=== PATIENT | female | born 1930 | race Caucasian/White ===

== ENCOUNTER 2019-01-20 07:57 | Outpatient (CLI) | payer MEDICARE ==
[2019-01-20 11:07] LABS: BASOPHILS # (AUTO) 0.1 10^3/uL (0.0-0.1); BASOPHILS % (AUTO) 0.9 %; EOSINOPHILS # (AUTO) 0.1 10^3/uL (0.0-0.7); EOSINOPHILS % (AUTO) 1.8 %; LYMPHOCYTES # (AUTO) 1.7 10^3/uL (1.5-3.5); LYMPHOCYTES % (AUTO) 26.1 %; MEAN CORPUSCULAR HEMOGLOBIN 32.9 pg (27.0-31.0); MEAN CORPUSCULAR HGB CONC 33.4 g/dL (32.0-36.0); MEAN CORPUSCULAR VOLUME 98.5 fL (81.0-99.0); MEAN PLATELET VOLUME 10.9 fL (7.9-10.8); MONOCYTES # (AUTO) 0.6 10^3/uL (0.0-1.0); MONOCYTES % (AUTO) 9.8 %; NEUTROPHILS # (AUTO) 3.9 10^3/uL (1.5-6.6); NEUTROPHILS % (AUTO) 61.4 %; PLT - PLATELET COUNT 164 10^3/uL (130-450); RED BLOOD COUNT 3.96 10^6/uL (4.20-5.40); RED CELL DISTRIBUTION WIDTH 14.7 % (12.0-15.0); WHITE BLOOD COUNT 6.3 x10^3/uL (4.8-10.8)
[2019-01-20 11:16] LABS: ALBUMIN 4.3 g/dL (3.2-5.5); ALBUMIN/GLOBULIN RATIO 1.2 (1.0-2.2); ALKALINE PHOSPHATASE 67 IU/L (42-121); ALT ALANINE AMINOTRANSFERASE 18 IU/L (10-60); AST ASPARTATE AMINOTRANSFERASE 31 IU/L (10-42); BILIRUBIN,TOTAL 1.2 mg/dL (0.2-1.0); BUN - BLOOD UREA NITROGEN 26 mg/dL (6-20); CALCIUM 10.4 mg/dL (8.5-10.3); CARBON DIOXIDE - CO2 26 mmol/L (21-32); CHLORIDE 102 mmol/L (101-111); CHOL/HDL RATIO 2.5 (<4.4); CHOLESTEROL 146 mg/dL; GFR - MDRD 53 (>89); GLUCOSE 95 mg/dL (70-100); HDL CHOLESTEROL 58 mg/dL; LDL CHOLESTEROL,CALCULATED 75 mg/dL; LDL/HDL RATIO 1.3 (<4.4); SODIUM 139 mmol/L (135-145); TOTAL PROTEIN 7.8 g/dL (6.7-8.2); VLDL CHOLESTEROL 13 mg/dL
[2019-01-20 11:25] LABS: HB2 TOTAL 13.6 g/dL; HEMOGLOBIN A1C 0.5 g/dL; HEMOGLOBIN A1C % 5.5 % (4.6-6.2)
== END 2019-01-20 07:58 | disposition home or self-care (01) ==
LOC: LAB.F 07:57
PROVIDERS: ATTEND Registered Nurse
DX: E78.5 Hyperlipidemia, unspecified (principal); I10 Essential (primary) hypertension; R60.0 Localized edema
CPT/HCPCS: 36415; 80053; 80061; 82043; 83036; 83721; 83880; 84443; 85025

== ENCOUNTER 2021-09-09 11:57 | Outpatient (CLI) | payer MEDICARE ==
--- NOTE | 2021-09-09 14:32 | XRAY Report ---
PROCEDURE: Cervical Spine Complete INDICATIONS: HYPERPARATHYROIDISM TECHNIQUE: 5 view(s) of the cervical spine were acquired. COMPARISON: None. FINDINGS: Bones: No fractures or dislocations to the C6 level. The lateral masses of C1 appear intact on the odontoid view. No suspicious bony lesions. Multilevel disc space narrowing and endplate osteophyte formation as well as facet hypertrophy throughout the mid and lower cervical spine. Moderate foramina l stenoses bilaterally at C3-C4, C4-C5, and C5-C6. Soft tissues: No prevertebral soft tissue swelling. IMPRESSION: Multilevel degenerative disc and facet disease. No acute fracture. No osseous lesion. If symptoms and/or clinical suspicion for pathology continue, further assessment with repeat plain film s, or advanced imaging (e.g., CT, MRI, or bone scan) is recommended for further assessment. Reviewed by: Fely Cole MD on 09/09/2021 2:31 PM PST Approved by: Fely Cole MD on 09/09/2021 2:31 PM PST Station ID: [id number]
--- NOTE | 2021-09-09 15:06 | XRAY Report ---
PROCEDURE: Lumbar Spine 2 View INDICATIONS: HYPERPARATHYROIDISM TECHNIQUE: 3 views of the lumbar spine were acquired. COMPARISON: None. FINDINGS: L-SPINE: 5 nonrib-bearing vertebrae. Diffuse osteopenia. Minimal retrolisthesis at L1-2. Grade 1 ante rolisthesis at L5-S1. The vertebral body heights are maintained. Mild disc height loss with facet ar throsis at L5-S1. The sacroiliac joints appear patent. SOFT TISSUES: No focal abnormality. IMPRESSION: 1.No acute osseous abnormality of the lumbar spine. Reviewed by: Mich Cm MD on 09/09/2021 3:04 PM [facility] Approved by: Mich Cm MD on 09/09/2021 3:04 PM [facility] Station ID: [id number]
--- NOTE | 2021-09-09 15:10 | XRAY Report ---
PROCEDURE: Thoracic Spine 2 View INDICATIONS: HYPERPARATHYROIDISM TECHNIQUE : 2 views of the thoracic spine were acquired. COMPARISON: None. FINDINGS: THORACIC SPINE: Diffuse osteopenia. No acute, displaced fracture or retropulsion. The vertebral body heights and intervertebral disc spaces are maintained. SOFT TISSUES: No prevertebral soft tissue thickening. IMPRESSION: 1. No acute osseous abnormality of the thoracic spine. Reviewed by: Mich Cm MD on 09/09/2021 3:08 PM [facility] Approved by: Mich Cm MD on 09/09/2021 3:08 PM [facility] Station ID: [id number]
== END 2021-09-09 11:58 | disposition home or self-care (01) ==
LOC: DI.S 11:57
PROVIDERS: ATTEND Nurse Practitioner Family
DX: E21.3 Hyperparathyroidism, unspecified (principal); M47.812 Spondylosis without myelopathy or radiculopathy, cervical region; M50.320 Other cervical disc degeneration, mid-cervical region, unspecified level; M48.02 Spinal stenosis, cervical region

== ENCOUNTER 2021-09-12 13:51 | Outpatient (CLI) | payer MEDICARE ==
--- NOTE | 2021-09-12 16:48 | DEXA Report ---
PROCEDURE: Dexa Spine and/or Hip INDICATIONS: OSTEOPOROSIS TECHNIQUE: Dual energy x-ray absorptiometry (DXA) was performed on a [employer] S[employer]A System. Regions measur ed are the AP Spine, femoral neck, and if needed forearm. COMPARISON: None. FINDINGS: Lumbar Spine: Bone Mineral Density 0.96 g/cm/cm,T score -1.8, osteopenia Left Hip: Bone Mineral Density 0.54 g/cm/cm,T score -3.7, osteoporosis. Impression: 1. Lumbar spine osteopenia. 2. Left hip osteoporosis. Patients with diagnosis of osteoporosis or osteopenia should have regular bone mineral density assess ment. For those eligible for Medicare, routine testing is allowed once every 2 years. Testing frequ ency can be increased for patients who have rapidly progressing disease or for those who are receivin g medical therapy to restore bone mass. Reviewed by: Fely Cole MD on 09/12/2021 4:47 PM PST Approved by: Fely Cole MD on 09/12/2021 4:47 PM PST Station ID: [id number]
== END 2021-09-12 13:52 | disposition home or self-care (01) ==
LOC: DI 13:51
PROVIDERS: ATTEND Nurse Practitioner Family
DX: M81.0 Age-related osteoporosis without current pathological fracture (principal)

== ENCOUNTER 2022-07-17 12:07 | Outpatient (CLI) | payer MEDICARE ==
[2022-07-17 12:59] LABS: CALCIUM 10.2 mg/dL (8.5-10.3); POTASSIUM 4.2 mmol/L (3.5-5.0)
[2022-07-17] MEDS ORDERED: iohexoL-300 100 ML VIAL ONE (13:58)
[2022-07-17] MEDS ORDERED: iohexoL-300 100 ML VIAL IVP ONE (14:26)
--- NOTE | 2022-07-17 16:59 | CT Report ---
PROCEDURE: ANGIO CHEST W/WO INDICATIONS: PULMONARY EMBOLUS CONTRAST: 80ml Omnipaque 300 TECHNIQUE: After the administration of intravenous contrast, 2 mm axial images were acquired from the pulmonary apices to the posterior costophrenic angles during the arterial phase. In addition, 1 mm lung kernel and 5 mm soft tissue kernel reconstructions were performed. 3-dimensional coronal oblique maximum int ensity projection (MIP) reformats, 8 mm axial MIP, and 5 mm coronal and sagittal MPR reformats were t hen performed through the thorax. For radiation dose reduction, the following was used: automated exp osure control, adjustment of mA and/or kV according to patient size. COMPARISON: None FINDINGS: Image quality: Excellent. Pulmonary arteries: Pulmonary arteries are normal in size, and demonstrate no intraluminal filling d efects to suggest central pulmonary embolism. Lungs and pleura: Mild right pleural effusion, minimal left pleural effusion, mild bibasilar atelecta sis. No focal pulmonary infiltrates. No pulmonary edema. Central and peripheral airways are patent. Mediastinum: Mild cardiomegaly, with minimal pericardial effusion. Moderate to severe coronary artery calcifications. No mediastinal or hilar adenopathy. Thoracic aorta is normal in caliber and enhanc ement. Esophagus is normal in caliber, without hiatal hernia. Bones and chest wall: No suspicious bony lesions. Ribs and thoracic spine appear intact throughout. No axillary or supraclavicular adenopathy. The thyroid is normal in size and there are no incident al findings. Abdomen: Upper abdominal imaging demonstrates the presence of calcified gallstones and gallbladder wa ll edema and thickening. There is reflux of contrast into the hepatic veins which may indicate an alphonse ment of right heart failure. IMPRESSION: 1. No evidence acute pulmonary emboli. 2. Mild to moderate coronary artery calcifications. 3. Mild cardiomegaly, bilateral pleural effusions, and minimal bibasilar atelectasis, and reflux of c ontrast into the hepatic veins. Findings suggest the possibility of mild right and left heart failure . 4. There are gallstones, and there is gallbladder wall thickening and edema. Recommend clinical corre lation to exclude possible acute cholecystitis. CLINICAL RECOMMENDATION STATEMENTS: In patients <35 years with an ITN detected on CT, MRI, or extrathyroidal ultrasound, the Committee re commends further evaluation with dedicated thyroid ultrasound if the nodule is "e1 cm and has no susp icious imaging features, and if the patient has normal life expectancy. In patients "e35 years with an ITN detected on CT, MRI, or extrathyroidal ultrasound, the Committee r ecommends further evaluation with dedicated thyroid ultrasound if the nodule is "e1.5 cm and has no s uspicious imaging features, and if the patient has normal life expectancy. (ACR, 2014) Reviewed by: Juan Pablo Lake MD on 07/17/2022 4:57 PM PST Approved by: Juan Pablo Lake MD on 07/17/2022 4:57 PM PST Station ID: [id number]
== END 2022-07-17 12:08 | disposition home or self-care (01) ==
LOC: LAB 12:07
PROVIDERS: ATTEND Nurse Practitioner Family
DX: Z86.711 Personal history of pulmonary embolism (principal); I25.10 Atherosclerotic heart disease of native coronary artery without angina pectoris; I51.7 Cardiomegaly; J90 Pleural effusion, not elsewhere classified; J98.11 Atelectasis; K80.20 Calculus of gallbladder without cholecystitis without obstruction
CPT/HCPCS: 36415; 71275; 80048; Q9967

== ENCOUNTER 2022-08-30 10:02 | Outpatient (CLI) | payer MEDICARE | END 2022-08-30 10:03 | disposition critical access hospital (66) | LOC: EMS 10:02 | DX: S00.33XA Contusion of nose, initial encounter (principal); S00.83XA Contusion of other part of head, initial encounter; W18.30XA Fall on same level, unspecified, initial encounter; Y92.009 Unspecified place in unspecified non-institutional (private) residence as the place of occurrence of the external cause | CPT/HCPCS: A0425; A0429 ==

== ENCOUNTER 2022-08-30 10:38 | Emergency (ER) | payer MEDICARE ==
[2022-08-30 12:05] LABS: BASOPHILS % (AUTO) 0.4 %; EOSINOPHILS % (AUTO) 0.4 %; HCT - HEMATOCRIT 32.4 % (37.0-47.0); HGB - HEMOGLOBIN 10.1 g/dL (12.0-16.0); LYMPHOCYTES # (AUTO) 1.1 10^3/uL (1.5-3.5); LYMPHOCYTES % (AUTO) 15.1 %; MEAN CORPUSCULAR HGB CONC 31.2 g/dL (32.0-36.0); MEAN CORPUSCULAR VOLUME 102.5 fL (81.0-99.0); MEAN PLATELET VOLUME 11.9 fL (7.9-10.8); MONOCYTES # (AUTO) 0.6 10^3/uL (0.0-1.0); MONOCYTES % (AUTO) 8.5 %; NEUTROPHILS # (AUTO) 5.6 10^3/uL (1.5-6.6); NEUTROPHILS % (AUTO) 75.2 %; PLT - PLATELET COUNT 135 10^3/uL (130-450); RED BLOOD COUNT 3.16 10^6/uL (4.20-5.40); RED CELL DISTRIBUTION WIDTH 14.9 % (12.0-15.0); WHITE BLOOD COUNT 7.4 x10^3/uL (4.8-10.8)
[2022-08-30 12:07] LABS: ALBUMIN 3.7 g/dL (3.2-5.5); ALBUMIN/GLOBULIN RATIO 1.3 (1.0-2.2); BILIRUBIN,TOTAL 1.3 mg/dL (0.2-1.0); CALCIUM 10.2 mg/dL (8.5-10.3); CREATININE 0.9 mg/dL (0.4-1.0); POTASSIUM 4.4 mmol/L (3.5-5.0); TOTAL PROTEIN 6.5 g/dL (6.7-8.2)
[2022-08-30 12:09] LABS: INR 1.4 (0.8-1.2); PT - PROTHROMBIN TIME 15.7 secs (9.9-12.6)
--- NOTE | 2022-08-30 12:38 | CT Report ---
PROCEDURE: HEAD WO INDICATIONS: fall/anticoagulated/head injury TECHNIQUE: Noncontrast 4.5 mm thick angled axial sections acquired from the foramen magnum to the vertex. For r adiation dose reduction, the following was used: automated exposure control, adjustment of mA and/or kV according to patient size. COMPARISON: None. FINDINGS: Image quality: Excellent. CSF spaces: Basal cisterns are patent. No extra-axial fluid collections. Ventricles are normal in size and shape. Brain: No midline shift. No intracranial masses or hemorrhage. No area of hypodensity in a vascula r distribution to suggest acute infarction. There is periventricular hypodensity consistent with bush and vine farmer fruit crops rito microvascular ischemic disease. Age-related parenchymal loss. Skull and face: Calvarium and visu alized facial bones are intact, without suspicious lesions. Sinuses: Coastal thickening at the maxillary sinuses. Mastoids are clear. IMPRESSION: No acute intracranial abnormality. Chronic microvascular scheme disease. Reviewed by: Kevin Moreno MD on 08/30/2022 12:37 PM PST Approved by: Kevin Moreno MD on 08/30/2022 12:37 PM PST Station ID: [id number]
--- NOTE | 2022-08-30 12:43 | CT Report ---
PROCEDURE: CERVICAL SPINE WO INDICATIONS: fall/pain TECHNIQUE: Noncontrast 3 mm thick sections acquired from the skull base to the T4 level. Sagittal and coronal r eformats were then constructed. For radiation dose reduction, the following was used: automated exp osure control, adjustment of mA and/or kV according to patient size. COMPARISON: CT pulmonary angiogram 07/17/2022. FINDINGS: Image quality: Excellent. Bones: No fractures or dislocations. Moderate degenerative change in the cervical spine. Visualized superior ribs are intact. Soft tissues: Prevertebral soft tissues are normal in thickness. No paravertebral hematomas. No ap ical pneumothoraces. Bilateral pleural effusions. Trace because of thickening in the left sphenoid si nus. IMPRESSION: No acute osseous abnormality. Bilateral pleural effusions. Reviewed by: Kevin Moreno MD on 08/30/2022 12:42 PM PST Approved by: Kevin Moreno MD on 08/30/2022 12:42 PM PST Station ID: [id number]
--- NOTE | 2022-08-30 12:44 | CT Report ---
PROCEDURE: MAXILLOFACIAL WO INDICATIONS: facial injury TECHNIQUE: Noncontrast 1.5 mm thick axial images acquired from the mandible through the frontal sinuses, with co meaghan and sagittal reformatting. For radiation dose reduction, the following was used: automated ex posure control, adjustment of mA and/or kV according to patient size. COMPARISON: Correlation is made with the accompanying CT examinations. FINDINGS: Image quality: Excellent. Bones and teeth: Mildly displaced nasal bone fractures are seen. There is a faint fracture of the na piotr septum seen superiorly, as on series 5 image 19. Orbital mckeon are intact. Sinus mckeon show no fracture or deformity. Visualized portions of the man dible demonstrate no fractures or subluxation. Zygomatic arches are intact. Pterygoid plates are in tact. Visualized portions of the skull base and auditory canals are intact. Sinuses: Layering blood can be seen within the maxillary sinuses and the sphenoid sinus. No significa nt abnormal fluid can be seen within the mastoid air cells. Soft tissues: Soft tissue swelling and soft tissue gas can be seen involving the nose. Vascular: Vis ualized vascular structures appear normal in the absence of contrast. Bony vascular foramina and can als are intact. IMPRESSION: Mildly displaced nasal bone fractures are seen, with associated soft tissue swelling and soft tissue gas. Associated layering blood can be seen within the maxillary sinuses and within the sphenoid sinus. Reviewed by: Michael Dc MD on 08/30/2022 11:43 AM [facility] Approved by: Michael Dc MD on 08/30/2022 11:43 AM [facility] Station ID: [id number]
[2022-08-30] MEDS ORDERED: ACETAMINOPHEN 325 MG TABLET PO STA (15:00)
--- NOTE | 2022-08-30 15:00 | ED Physician Documentation ---
PD HPI HEAD INJURY - Stated complaint Stated Complaint: GLF/HEAD STRIKE - Chief complaint Chief Complaint: Trauma Hd/Nk - History obtained from History obtained from: Patient, Family, EMS - Additional information Additional information: Patient comes the emergency department chief complaint of ground-level fall and facial injuries. She states that she was ambulating Last night and lost her balance because she was trying to fasten her pants after using the bathroom and walk at the same time. She states she normally puts her arms out to balance herself when she was walking but since she did not and her pants were around her hips, she ended up stumbling forward. She fell face first to her carpeted floor and sustained injuries to her face. She had epistaxis following the event. She states she did not lose consciousness and does not feel as though she was injured anywhere else. She has some chronic neck pain and she is not really sure if this is worse than usual or not. She denies any pain in her extremities, back, or ribs. No hip pain. She was able to call for her , who helped her up and back to bed. However, she has laid in bed today because her face and her body ache, and she states, and her family finally decided to send her in. She is anticoagulated for atrial fibrillation. The patient's granddaughter states the patient is at her mental baseline and has been all day. Review of Systems Constitutional: reports: Reviewed and negative Eyes: reports: Reviewed and negative Ears: reports: Reviewed and negative Nose: reports: Reviewed and negative Throat: reports: Reviewed and negative Cardiac: reports: Reviewed and negative Respiratory: reports: Reviewed and negative GI: reports: Reviewed and negative : reports: Reviewed and negative Skin: reports: Reviewed and negative Musculoskeletal: reports: Reviewed and negative Neurologic: reports: Reviewed and negative Psychiatric: reports: Reviewed and negative Endocrine: reports: Reviewed and negative Immunocompromised: reports: Reviewed and negative PD PAST MEDICAL HISTORY - Present Medications Home Medications: Ambulatory Orders Medication Instructions Recorded Confirmed HYDROcod/ACETAM 5/325 [[place] 5/325] 1 tablet PO Q6H PRN #14 tablet 08/30/22 - Allergies Allergies/Adverse Reactions: Allergies Allergy/AdvReac Type Severity Reaction Status Date / Time No Known Drug Allergies Allergy Verified 08/30/22 10:48 PD ED PE NORMAL - Vitals Vital signs reviewed: Yes - General General: Alert and oriented X 3, No acute distress, Well developed/nourished - HEENT HEENT: PERRL, EOMI, Moist mucous membranes, Other (Extensive But faint contusion noted over the patient's face. There is some edema over both sides of the nasal bridge and dried epistaxis. No septal hematoma. No active bleeding. No dental malalignment. Full range of motion mandible.) - Neck Neck: Supple, no meningeal sign, Other (Diffuse tenderness palpation over the patient's cervical spine. 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, No motor deficit, No sensory deficit, Normal speech, Other (No gross deficits) - Psych Psych: Normal mood, Normal affect Results - Vitals Vitals: Vital Signs - 24 hr 08/30/22 08/30/22 08/30/22 10:44 13:59 15:15 Temperature 36.3 C L Heart Rate 122 H 87 117 H Respiratory 24 12 19 Rate Blood Pressure 123/79 109/65 124/80 O2 Saturation 95 95 97 Oxygen O2 Source Room air - Labs Labs: Laboratory Tests 08/30/22 08/30/22 08/30/22 10:45 10:45 10:45 WBC 7.4 RBC 3.16 L Hgb 10.1 L Hct 32.4 L MCV 102.5 H MCH 32.0 H MCHC 31.2 L RDW 14.9 Plt Count 135 MPV 11.9 H Neut # (Auto) 5.6 Lymph # (Auto) 1.1 L [place] # (Auto) 0.6 Eos # (Auto) 0.0 Baso # (Auto) 0.0 Absolute Nucleated RBC 0.00 Nucleated RBC % 0.0 PT 15.7 H INR 1.4 H Sodium 137 Potassium 4.4 Chloride 103 Carbon Dioxide 24 Anion Gap 10.0 BUN 21 H Creatinine 0.9 Estimated GFR (MDRD) 59 L Glucose 94 Calcium 10.2 Total Bilirubin 1.3 H AST 33 ALT 16 Alkaline Phosphatase 61 Total Protein 6.5 L Albumin 3.7 Globulin 2.8 Albumin/Globulin Ratio 1.3 Lipase 27 - Rads (name of study) CT head Radiology: Final report received, See rad report (No acute findings) CT C-spine Radiology: Final report received, See rad report (DJD; 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 She was found to have nondisplaced nasal bone fracture but otherwise, studies were unremarkable. We have discussed symptomatic management at home as well as the usual indications for return. The patient continues to report no pain anywhere else and is stable for discharge. Departure - Departure Disposition: 01 Home, Self Care Clinical Impression: Ground-level fall Closed head injury Qualifiers: Encounter type: initial encounter Qualified Code(s): S09.90XA - Unspecified injury of head, initial encounter Nasal bone fracture Qualifiers: Encounter type: initial encounter Fracture type: closed Qualified Code(s): S02.2XXA - Fracture of nasal bones, initial encounter for closed fracture Condition: Stable Instructions: ED Fx Nasal Conf W X Ray, ED Head Injury Closed Prescriptions: HYDROcod/ACETAM 5/325 [[place] 5/325] 1 tablet PO Q6H PRN #14 tablet PRN Reason: Pain Comments: Your CT scans show a nasal bone fracture, but otherwise, no concerning findings. Your prescription has been electronically transmitted to the [facility] in [place]. Please refer to the resources that our social work team has provided for home assistance. Please also be sure to use a walker when you are up and about, particularly if it is nighttime. Discharge Date/Time: 08/30/22 16:11
[2022-08-30 15:15] VITALS: BP 124/80
== END 2022-08-30 16:11 | disposition home or self-care (01) ==
LOC: EDUNIT# → ED 10:38
DX: S09.90XA Unspecified injury of head, initial encounter (principal); W18.39XA Other fall on same level, initial encounter; Y92.009 Unspecified place in unspecified non-institutional (private) residence as the place of occurrence of the external cause
CPT/HCPCS: 36415; 70450; 70486; 72125; 80053; 83690; 85025; 85610; 99284; A9270